=== PATIENT | female | born 1955 | race African-American/Black ===

== ENCOUNTER 2020-05-03 12:47 | Emergency (ER) | payer MEDICAID, OTHER ==
[~2020-05-03] VITALS: Ht 157.5 cm; Wt 70.0 kg
[~2020-05-03 12:47] MED LIST: AMLO2.5T45 MT; BACL-141 PO; DULO30CA2 PO; GABA-290 PO; GLIP1TAB4 MT; HYDR-4001 MT; KEPP500 PO; SIMV5TAB58 MT
[2020-05-03 14:20] LABS: BASOPHILS % 0.9 % (0.0-2.0); EOSINOPHILS % 0.3 % (0.0-5.0); HEMATOCRIT. 39.7 % (36.0-48.0); HEMOGLOBIN. 12.9 g/dL (12.0-16.0); LYMPHOCYTES % 18.4 % (20.0-50.0); MEAN CORPUSCULAR HEMOGLOBIN 26.2 pg (28.0-32.0); MEAN CORPUSCULAR VOLUME 80.8 fL (81.0-99.0); MEAN PLATELET VOLUME 9.7 fl (7.4-10.4); MONOCYTES % 10.7 % (2.0-8.0); NEUTROPHILS % 69.7 % (40.0-76.0); PLATELET 340 x1000/uL (130-400); RED BLOOD CELL COUNT 4.91 mill/uL (4.2-5.4); RED CELL DISTRIBUTION WIDTH 16.2 % (11.6-14.6)
[2020-05-03 14:25] LABS: CHLORIDE 108 mEq/L (98-107)
[2020-05-03] MEDS ORDERED: POTASSIUM CHLORIDE 20MEQ TABLET SR PO ONE (15:00)
[2020-05-03] MEDS ORDERED: FUROSEMIDE 20MG/2ML VIAL IVP ONE (15:00)
[2020-05-03] MEDS ORDERED: RIVAROXABAN 10 MG TABLET PO STA (15:02)
[2020-05-03] MEDS ORDERED: RIVAROXABAN 20 MG TABLET PO SCH (15:30)
[2020-05-03 18:07] VITALS: BP 149/88
== END 2020-05-03 18:00 | disposition home or self-care (01) ==
LOC: ER 12:47
DX: I48.91 Unspecified atrial fibrillation (principal); I13.0 Hypertensive heart and chronic kidney disease with heart failure and stage 1 through stage 4 chronic kidney disease, or unspecified chronic kidney disease; I50.41 Acute combined systolic (congestive) and diastolic (congestive) heart failure; E11.22 Type 2 diabetes mellitus with diabetic chronic kidney disease; N18.9 Chronic kidney disease, unspecified; E11.649 Type 2 diabetes mellitus with hypoglycemia without coma; Z79.4 Long term (current) use of insulin
CPT/HCPCS: 36415; 71045; 80048; 80053; 82962; 83880; 84484; 85025; 93005; 93970; 96374; 99285; J1940

== ENCOUNTER 2020-05-18 14:19 | Inpatient (IN) | payer MEDICAID, OTHER ==
[~2020-05-18] VITALS: Ht 157.5 cm; Wt 68.0 kg
[2020-05-18] MEDS ORDERED: ONDANSETRON HCL 4MG/2ML INJ IV STA (14:39)
[2020-05-18] MEDS ORDERED: DILTIAZEM HCL 5MG/ML 5ML VIAL IV ONE (14:45)
[2020-05-18] MEDS ORDERED: SODIUM CHLORIDE 0.9% 250 ML IV ONE (14:45)
[2020-05-18 15:34] LABS: CHLORIDE 103 mEq/L (98-107)
[2020-05-18 15:37] LABS: BASOPHILS % 0.1 % (0.0-2.0); HEMOGLOBIN. 12.4 g/dL (12.0-16.0); LYMPHOCYTES % 9.3 % (20.0-50.0); MEAN CORPUSCULAR HEMOGLOBIN 25.1 pg (28.0-32.0); MEAN CORPUSCULAR VOLUME 80.7 fL (81.0-99.0); MEAN PLATELET VOLUME 10.1 fl (7.4-10.4); MONOCYTES % 9.4 % (2.0-8.0); NEUTROPHILS % 81.2 % (40.0-76.0); PLATELET 426 x1000/uL (130-400); RED BLOOD CELL COUNT 4.96 mill/uL (4.2-5.4); RED CELL DISTRIBUTION WIDTH 17.3 % (11.6-14.6)
[2020-05-18 15:48] LABS: INR 2.2; PARTIAL THROMBOPLASTIN TIME 32.3 sec (23.4-31.0); PROTHROMBIN TIME 22.6 sec (9.6-11.0)
[2020-05-18] MEDS ORDERED: CLOPIDOGREL 75MG TABLET PO ONE (16:45)
[2020-05-18] MEDS ORDERED: SODIUM CHLORIDE 0.9% 500 ML IV ONE (16:45)
[2020-05-18] MEDS ORDERED: CEFTRIAXONE 1 G PREMIX 50 ML IV ONE (17:30)
[2020-05-18 18:54] LABS: CLARITY URINE CLOUDY (CLEAR); COLOR URINE DARK YELLOW (YELLOW); KETONES URINE TRACE (NEGATIVE); LEUKOCYTE ESTERASE URINE 1+ (NEGATIVE); NITRITE URINE NEGATIVE (NEGATIVE); OCCULT BLOOD URINE NEGATIVE (NEGATIVE); PROTEIN URINE 2+ (NEGATIVE); SPECIFIC GRAVITY URINE 1.019 (1.005-1.030)
[2020-05-18] MEDS: METOPROLOL TARTRATE 50MG TABLET PO SCH (19:00)
[2020-05-18] MEDS ORDERED: METOPROLOL TARTRATE 50MG TABLET PO SCH (19:00)
[2020-05-18] MEDS ORDERED: ONDANSETRON HCL 4MG/2ML INJ IV PRN (19:15)
[2020-05-18] MEDS ORDERED: DILTIAZEM HCL 5MG/ML 5ML VIAL IV NR (19:15)
[2020-05-18] MEDS ORDERED: PIPERACILLIN/TAZOBACTAM 3.375 G in DEXT 5% WATER 100 ML IV SCH (19:15)
[2020-05-18] MEDS ORDERED: AZITHROMYCIN 500 MG in DEXT 5% WATER 250 ML IV SCH (20:00)
[2020-05-18] MEDS ORDERED: PIPERACILLIN/TAZOBACTAM 2.25 G in DEXTROSE 5% WATER 50 ML IV SCH (20:30)
[2020-05-18] MEDS: SODIUM CHLORIDE 0.9% 1,000 ML IV SCH (22:10)
[2020-05-18] MEDS: INSULIN LISPRO 100 UNITS/ML SUBCUT SCH (23:29)
[2020-05-18] MEDS: BLOOD SUGAR DIAGNOSTIC STRIP TEST SCH (23:30)
[2020-05-19] VITALS (77 sets, daily range): BP systolic 73–166; BP diastolic 50–107
[2020-05-19] MEDS ORDERED: MORPHINE SULFATE 2 MG/ML CPJ (NOT FOR IM USE) IV PRN (02:15)
[2020-05-19] MEDS ORDERED: PROPOFOL 10MG/ML 100ML 100 ML IV PRN (04:45)
[2020-05-19] MEDS ORDERED: PHENYLEPHRINE 50 MG in DEXT 5% WATER 245 ML IV PRN ×2 (05:00→08:00)
[2020-05-19] MEDS: INSULIN LISPRO 100 UNITS/ML SUBCUT SCH ×4 (07:00→22:08)
[2020-05-19] MEDS: DILTIAZEM HCL 60MG TABLET PO SCH ×2 (07:36)
[2020-05-19] MEDS: PIPERACILLIN/TAZOBACTAM 2.25 G in DEXTROSE 5% WATER 50 ML IV SCH ×3 (08:07→23:01)
[2020-05-19] MEDS: SODIUM CHLORIDE 0.9% 1,000 ML IV SCH ×2 (08:35→16:39)
[2020-05-19 08:42] LABS: BG CARBOXYHEMOGLOBIN 0.1 % (0.5-1.5); BG DEOXYHEMOGLOBIN 0.2 % (0.0-5.0); BG FRACTION INSPIRED OXYGEN 100; BG HCO3 ACT 14.5 mmol/L (22.0-26.0); BG METHEMOGLOBIN 0.2 % (0.0-1.5); BG OXYGEN SATURATION 99.8 % (92.0-98.5); BG OXYHEMOGLOBIN 99.5 % (94.0-97.0); BG PCO2 31.6 mmHg (35.0-45.0); BG PH 7.281 (7.350-7.450); BG PO2 401.7 mmHg (75.0-100.0); BG SAMPLE SITE RIGHT RADIAL; BG TIDAL VOLUME(mL) 500 mL; BG TOTAL HEMOGLOBIN 12.5 g/dL (12.0-18.0); BG VENT MODE VENT - A/C; BG VENT RATE 16 set
[2020-05-19] MEDS: METOPROLOL TARTRATE 50MG TABLET PO SCH (08:43)
[2020-05-19 09:58] LABS: BASOPHILS % 0.4 % (0.0-2.0); HEMATOCRIT. 38.3 % (36.0-48.0); HEMOGLOBIN. 11.9 g/dL (12.0-16.0); LYMPHOCYTES % 8.8 % (20.0-50.0); MEAN CORPUSCULAR HEMOGLOBIN 24.9 pg (28.0-32.0); MEAN CORPUSCULAR VOLUME 80.4 fL (81.0-99.0); MEAN PLATELET VOLUME 9.9 fl (7.4-10.4); MONOCYTES % 8.8 % (2.0-8.0); PLATELET 317 x1000/uL (130-400); RED BLOOD CELL COUNT 4.77 mill/uL (4.2-5.4)
[2020-05-19] MEDS ORDERED: SODIUM BICARBONATE 8.4% 1 MEQ/ML 50ML SYR IV NR ×2 (10:00→11:00)
[2020-05-19 10:07] LABS: INR 2.6; PROTHROMBIN TIME 26.5 sec (9.6-11.0)
[2020-05-19] MEDS ORDERED: INSULIN REGULAR (HUMULIN R) 300UNITS/3ML IV NR (11:00)
[2020-05-19] MEDS ORDERED: DEXTROSE 50% WATER 50ML SYRINGE IV NR (11:00)
[2020-05-19] MEDS: CITRIC ACID/SODIUM CITRATE SOLN 30ML UDC NG SCH ×3 (11:53→16:39)
[2020-05-19] MEDS ORDERED: SODIUM POLYSTYRENE SULFONATE 15 G/60 ML BOT PO NR (12:00)
[2020-05-19] MEDS: BLOOD SUGAR DIAGNOSTIC STRIP TEST SCH ×3 (12:21→21:00)
[2020-05-19] MEDS ORDERED: SODIUM POLYSTYRENE SULFONATE 15 G/60 ML BOT NG NR (13:00)
[2020-05-19] MEDS: PANTOPRAZOLE SODIUM 40 MG/VIAL IV SCH (14:48)
[2020-05-19] MEDS: PROPOFOL 10MG/ML 100ML 100 ML IV PRN (15:59)
[2020-05-19 17:07] LABS: *AMPHETAMINES SCREEN URINE NEGATIVE (NEGATIVE); *BARBITURATES SCREEN URINE NEGATIVE (NEGATIVE); *BENZODIAZEPINES SCREEN URINE NEGATIVE (NEGATIVE); *COCAINE SCREEN URINE NEGATIVE (NEGATIVE); METHADONE URINE SCREEN NEGATIVE (NEGATIVE); OPIATES URINE SCREEN NEGATIVE (NEGATIVE); PHENCYCLIDINE URINE SCREEN NEGATIVE (NEGATIVE)
[2020-05-19 17:09] LABS: CANNABINOID URINE SCREEN NEGATIVE (NEGATIVE)
[2020-05-19] MEDS: PHENYLEPHRINE 100 MG in DEXT 5% WATER 240 ML IV PRN (20:00)
[2020-05-19] MEDS: LEVETIRACETAM 500MG TABLET PO SCH (22:07)
[2020-05-20] VITALS (97 sets, daily range): BP systolic 84–139; BP diastolic 46–89
[2020-05-20] MEDS: PROPOFOL 10MG/ML 100ML 100 ML IV PRN ×3 (00:56→15:53)
[2020-05-20] MEDS: PIPERACILLIN/TAZOBACTAM 2.25 G in DEXTROSE 5% WATER 50 ML IV SCH ×3 (05:49→21:04)
[2020-05-20] MEDS: SODIUM CHLORIDE 0.9% 1,000 ML IV SCH ×2 (05:50→12:05)
[2020-05-20 05:53] LABS: HEMATOCRIT. 36.7 % (36.0-48.0); HEMOGLOBIN. 11.8 g/dL (12.0-16.0); MEAN CORPUSCULAR VOLUME 77.7 fL (81.0-99.0); MEAN PLATELET VOLUME 9.9 fl (7.4-10.4); PLATELET 249 x1000/uL (130-400); RED BLOOD CELL COUNT 4.73 mill/uL (4.2-5.4); RED CELL DISTRIBUTION WIDTH 16.9 % (11.6-14.6)
[2020-05-20 06:01] LABS: PHOSPHORUS 7.5 mg/dL (2.5-4.9)
[2020-05-20] MEDS: INSULIN LISPRO 100 UNITS/ML SUBCUT SCH ×3 (06:48→18:34)
[2020-05-20] MEDS: BLOOD SUGAR DIAGNOSTIC STRIP TEST SCH ×3 (06:49→18:01)
[2020-05-20 07:13] LABS: BG BASE EXCESS -2.5 mmol/L (-2.0-2.0); BG CARBOXYHEMOGLOBIN 0.5 % (0.5-1.5); BG DEOXYHEMOGLOBIN 5.9 % (0.0-5.0); BG FRACTION INSPIRED OXYGEN 40; BG HCO3 ACT 20.3 mmol/L (22.0-26.0); BG METHEMOGLOBIN 0.7 % (0.0-1.5); BG OXYHEMOGLOBIN 92.9 % (94.0-97.0); BG PCO2 29.5 mmHg (35.0-45.0); BG PH 7.456 (7.350-7.450); BG PO2 77.3 mmHg (75.0-100.0); BG SAMPLE SITE RIGHT BRACHIAL; BG TIDAL VOLUME(mL) 500 mL; BG TOTAL HEMOGLOBIN 12.8 g/dL (12.0-18.0); BG VENT MODE VENT - A/C; BG VENT RATE 16 set
[2020-05-20 07:40] LABS: NUCLEATED RED BLOOD CELLS 4 /100 WBC; PLATELET ESTIMATE NORMAL
[2020-05-20] MEDS: PANTOPRAZOLE SODIUM 40 MG/VIAL IV SCH (08:09)
[2020-05-20] MEDS: CITRIC ACID/SODIUM CITRATE SOLN 30ML UDC NG SCH ×3 (08:09→15:56)
[2020-05-20] MEDS: PHENYLEPHRINE 100 MG in DEXT 5% WATER 240 ML IV PRN (08:11)
[2020-05-20] MEDS: LEVETIRACETAM 500MG TABLET PO SCH ×2 (09:57→21:04)
[2020-05-20] MEDS: MIDODRINE HCL 5MG TABLET NG SCH ×3 (09:58→15:56)
[2020-05-20 12:05] LABS: INR 1.7; PROTHROMBIN TIME 17.3 sec (9.6-11.0)
[2020-05-20] MEDS ORDERED: IPRATROPIUM/ALBUTEROL 0.5-3(2.5)MG/3ML NEB HHN PRN (12:15)
[2020-05-20] MEDS: IPRATROPIUM BROMIDE (0.02%) 0.5MG/2.5ML NEB HHN SCH (19:55)
[2020-05-20] MEDS: FENTANYL CITRATE/PF 1,000 MCG in SODIUM CHLORIDE 0.9% 80 ML IV PRN (21:07)
[2020-05-21] VITALS (100 sets, daily range): BP systolic 61–143; BP diastolic 40–112
[2020-05-21] MEDS: BLOOD SUGAR DIAGNOSTIC STRIP TEST SCH ×4 (00:17→18:00)
[2020-05-21] MEDS: INSULIN LISPRO 100 UNITS/ML SUBCUT SCH ×4 (00:24→18:04)
[2020-05-21] MEDS: PROPOFOL 10MG/ML 100ML 100 ML IV PRN (00:45)
[2020-05-21] MEDS: PHENYLEPHRINE 100 MG in DEXT 5% WATER 240 ML IV PRN ×2 (01:11→15:27)
[2020-05-21] MEDS: IPRATROPIUM BROMIDE (0.02%) 0.5MG/2.5ML NEB HHN SCH ×4 (02:00→20:20)
[2020-05-21] MEDS: PIPERACILLIN/TAZOBACTAM 2.25 G in DEXTROSE 5% WATER 50 ML IV SCH ×3 (06:38→21:29)
[2020-05-21 07:16] LABS: BASOPHILS % 0.4 % (0.0-2.0); HEMATOCRIT. 35.2 % (36.0-48.0); HEMOGLOBIN. 11.3 g/dL (12.0-16.0); MEAN CORPUSCULAR HEMOGLOBIN 24.7 pg (28.0-32.0); MEAN CORPUSCULAR VOLUME 76.8 fL (81.0-99.0); MEAN PLATELET VOLUME 10.4 fl (7.4-10.4); MONOCYTES % 6.9 % (2.0-8.0); NEUTROPHILS % 83.7 % (40.0-76.0); PLATELET 200 x1000/uL (130-400); RED BLOOD CELL COUNT 4.58 mill/uL (4.2-5.4); RED CELL DISTRIBUTION WIDTH 17.2 % (11.6-14.6)
[2020-05-21 07:23] LABS: INR 1.4; PARTIAL THROMBOPLASTIN TIME 37.9 sec (23.4-31.0); PROTHROMBIN TIME 14.6 sec (9.6-11.0)
[2020-05-21 07:26] LABS: PHOSPHORUS 7.6 mg/dL (2.5-4.9)
[2020-05-21] MEDS: CITRIC ACID/SODIUM CITRATE SOLN 30ML UDC NG SCH ×3 (08:27→18:04)
[2020-05-21] MEDS: PANTOPRAZOLE SODIUM 40 MG/VIAL IV SCH (08:28)
[2020-05-21] MEDS: MIDODRINE HCL 5MG TABLET NG SCH ×3 (08:28→18:03)
[2020-05-21] MEDS: LEVETIRACETAM 500MG TABLET PO SCH ×2 (08:28→21:29)
[2020-05-21] MEDS ORDERED: ALBUMIN HUMAN 25GM/100ML (25%) IV NR ×2 (09:00→19:30)
[2020-05-21 09:25] LABS: BG BASE EXCESS -3.2 mmol/L (-2.0-2.0); BG CARBOXYHEMOGLOBIN 0.1 % (0.5-1.5); BG DEOXYHEMOGLOBIN 1.4 % (0.0-5.0); BG FRACTION INSPIRED OXYGEN 40; BG HCO3 ACT 18.7 mmol/L (22.0-26.0); BG OXYGEN SATURATION 98.6 % (92.0-98.5); BG OXYHEMOGLOBIN 98.5 % (94.0-97.0); BG PCO2 25.1 mmHg (35.0-45.0); BG PO2 135.7 mmHg (75.0-100.0); BG SAMPLE SITE RIGHT RADIAL; BG TIDAL VOLUME(mL) 500 mL; BG TOTAL HEMOGLOBIN 11.9 g/dL (12.0-18.0); BG VENT MODE VENT - A/C; BG VENT RATE 16 set
[2020-05-21] MEDS ORDERED: AMIODARONE HCL 900 MG in DEXT 5% WATER 482 ML IV SCH (09:30)
[2020-05-21] MEDS ORDERED: EPINEPHRINE 1:1000 1 MG/ML AMP INJ ONE (10:00)
[2020-05-21] MEDS ORDERED: HEPARIN SODIUM 1,000 UNIT/1ML VIAL IV ONE (10:00)
[2020-05-21] MEDS: FENTANYL CITRATE/PF 1,000 MCG in SODIUM CHLORIDE 0.9% 80 ML IV PRN (19:10)
[2020-05-21] MEDS: NOREPINEPHRINE 8 MG in DEXT 5% WATER 242 ML IV PRN (21:01)
[2020-05-21] MEDS ORDERED: DOPAMINE 800MG PREMIX (DOUBLE) 250 ML IV PRN ×2 (22:13→22:30)
[2020-05-21] MEDS ORDERED: DOPAMINE 400MG/250ML PREMIX 250 ML IV STA (22:16)
[2020-05-21] MEDS: EPINEPHRINE 10 MG in SODIUM CHLORIDE 0.9% 240 ML IV PRN (22:58)
[2020-05-22] VITALS (120 sets, daily range): BP systolic 0–188; BP diastolic 21–108
[2020-05-22] MEDS: BLOOD SUGAR DIAGNOSTIC STRIP TEST SCH ×5 (00:21→23:37)
[2020-05-22 00:34] LABS: BG BASE EXCESS -8.8 mmol/L (-2.0-2.0); BG CARBOXYHEMOGLOBIN 0.5 % (0.5-1.5); BG DEOXYHEMOGLOBIN 1.8 % (0.0-5.0); BG FRACTION INSPIRED OXYGEN 100; BG METHEMOGLOBIN 0.5 % (0.0-1.5); BG OXYGEN SATURATION 98.2 % (92.0-98.5); BG OXYHEMOGLOBIN 97.2 % (94.0-97.0); BG PCO2 42.3 mmHg (35.0-45.0); BG PH 7.247 (7.350-7.450); BG PO2 141.4 mmHg (75.0-100.0); BG SAMPLE SITE LEFT RADIAL; BG TIDAL VOLUME(mL) 450 mL; BG VENT MODE VENT - A/C; BG VENT RATE 12 set
[2020-05-22] MEDS: NOREPINEPHRINE 8 MG in DEXT 5% WATER 242 ML IV PRN ×7 (03:31→23:38)
[2020-05-22] MEDS: PHENYLEPHRINE 100 MG in DEXT 5% WATER 240 ML IV PRN ×3 (03:32→21:30)
[2020-05-22 03:39] LABS: HEMATOCRIT. 35.9 % (36.0-48.0); MEAN CORPUSCULAR HEMOGLOBIN 24.4 pg (28.0-32.0); MEAN CORPUSCULAR VOLUME 79.5 fL (81.0-99.0); MEAN PLATELET VOLUME 9.6 fl (7.4-10.4); PLATELET 171 x1000/uL (130-400); RED BLOOD CELL COUNT 4.52 mill/uL (4.2-5.4); RED CELL DISTRIBUTION WIDTH 17.8 % (11.6-14.6)
[2020-05-22 03:44] LABS: CHLORIDE 107 mEq/L (98-107)
[2020-05-22 03:46] LABS: INR 1.9; PROTHROMBIN TIME 19.4 sec (9.6-11.0)
[2020-05-22 03:58] LABS: PHOSPHORUS 8.9 mg/dL (2.5-4.9)
[2020-05-22 04:23] LABS: NUCLEATED RED BLOOD CELLS 2 /100 WBC; PLATELET ESTIMATE NORMAL
[2020-05-22] MEDS: INSULIN LISPRO 100 UNITS/ML SUBCUT SCH ×2 (06:00)
[2020-05-22] MEDS: PIPERACILLIN/TAZOBACTAM 2.25 G in DEXTROSE 5% WATER 50 ML IV SCH ×3 (06:58→21:26)
[2020-05-22] MEDS: DEXTROSE 50% WATER 50ML SYRINGE IV PRN (07:14)
[2020-05-22] MEDS: IPRATROPIUM BROMIDE (0.02%) 0.5MG/2.5ML NEB HHN SCH ×2 (08:10→20:26)
[2020-05-22] MEDS: EPINEPHRINE 10 MG in SODIUM CHLORIDE 0.9% 240 ML IV PRN ×5 (08:12→23:38)
[2020-05-22] MEDS ORDERED: DILTIAZEM HCL 125 MG in DEXT 5% WATER 100 ML IV PRN (08:45)
[2020-05-22] MEDS ORDERED: DIGOXIN 500MCG/2ML AMP IV SCH (08:45)
[2020-05-22] MEDS: LEVETIRACETAM 500MG TABLET PO SCH ×2 (09:12→21:26)
[2020-05-22] MEDS: MIDODRINE HCL 5MG TABLET NG SCH ×3 (09:12→17:00)
[2020-05-22] MEDS: PANTOPRAZOLE SODIUM 40 MG/VIAL IV SCH (09:12)
[2020-05-22] MEDS: CITRIC ACID/SODIUM CITRATE SOLN 30ML UDC NG SCH ×3 (09:12→17:00)
[2020-05-22 09:17] LABS: BG BASE EXCESS -15.5 mmol/L (-2.0-2.0); BG CARBOXYHEMOGLOBIN 0.5 % (0.5-1.5); BG DEOXYHEMOGLOBIN 2.7 % (0.0-5.0); BG FRACTION INSPIRED OXYGEN 100; BG HCO3 ACT 9.8 mmol/L (22.0-26.0); BG METHEMOGLOBIN 0.5 % (0.0-1.5); BG OXYGEN SATURATION 97.3 % (92.0-98.5); BG OXYHEMOGLOBIN 96.3 % (94.0-97.0); BG PCO2 22.6 mmHg (35.0-45.0); BG PH 7.255 (7.350-7.450); BG PO2 110.9 mmHg (75.0-100.0); BG SAMPLE SITE RIGHT RADIAL; BG TIDAL VOLUME(mL) 450 mL; BG TOTAL HEMOGLOBIN 12.3 g/dL (12.0-18.0); BG VENT MODE VENT - A/C; BG VENT RATE 16 set
[2020-05-22] MEDS ORDERED: SODIUM BICARBONATE 8.4% 1 MEQ/ML 50ML SYR IV SCH (10:45)
[2020-05-23] VITALS (99 sets, daily range): BP systolic 66–138; BP diastolic 25–86
[2020-05-23] MEDS: DEXTROSE 50% WATER 50ML SYRINGE IV PRN (00:04)
[2020-05-23] MEDS: IPRATROPIUM BROMIDE (0.02%) 0.5MG/2.5ML NEB HHN SCH ×4 (00:41→20:10)
[2020-05-23] MEDS: NOREPINEPHRINE 8 MG in DEXT 5% WATER 242 ML IV PRN ×6 (00:43→12:47)
[2020-05-23] MEDS: PHENYLEPHRINE 100 MG in DEXT 5% WATER 240 ML IV PRN ×3 (03:19→20:38)
[2020-05-23] MEDS: EPINEPHRINE 10 MG in SODIUM CHLORIDE 0.9% 240 ML IV PRN ×7 (04:26→22:27)
[2020-05-23] MEDS: BLOOD SUGAR DIAGNOSTIC STRIP TEST SCH ×4 (05:34→23:28)
[2020-05-23] MEDS: PIPERACILLIN/TAZOBACTAM 2.25 G in DEXTROSE 5% WATER 50 ML IV SCH (06:10)
[2020-05-23 08:11] LABS: PHOSPHORUS 11.5 mg/dL (2.5-4.9)
[2020-05-23] MEDS: PANTOPRAZOLE SODIUM 40 MG/VIAL IV SCH (08:24)
[2020-05-23] MEDS ORDERED: SODIUM BICARBONATE 8.4% 1 MEQ/ML 50ML SYR IV SCH ×3 (08:45→14:45)
[2020-05-23] MEDS: MIDODRINE HCL 5MG TABLET NG SCH ×3 (08:53→16:08)
[2020-05-23] MEDS: CITRIC ACID/SODIUM CITRATE SOLN 30ML UDC NG SCH ×3 (08:53→16:08)
[2020-05-23] MEDS: LEVETIRACETAM 500MG TABLET PO SCH ×2 (08:54→21:52)
[2020-05-23] MEDS ORDERED: SODIUM POLYSTYRENE SULFONATE 15 G/60 ML BOT NG SCH (09:00)
[2020-05-23 09:40] LABS: HEMATOCRIT. 35.5 % (36.0-48.0); HEMOGLOBIN. 9.8 g/dL (12.0-16.0); MEAN CORPUSCULAR HEMOGLOBIN 24.7 pg (28.0-32.0); MEAN CORPUSCULAR VOLUME 89.3 fL (81.0-99.0); RED BLOOD CELL COUNT 3.98 mill/uL (4.2-5.4); RED CELL DISTRIBUTION WIDTH 19.9 % (11.6-14.6)
[2020-05-23 10:14] LABS: NUCLEATED RED BLOOD CELLS 4 /100 WBC; PLATELET ESTIMATE DECREASED; PROTHROMBIN TIME 44.6 sec (9.6-11.0)
[2020-05-23 10:16] LABS: INR 4.6
[2020-05-23 10:19] LABS: MEAN PLATELET VOLUME 8.9 fl (7.4-10.4); PLATELET 87 x1000/uL (130-400)
[2020-05-23 10:58] LABS: BG BASE EXCESS -22.2 mmol/L (-2.0-2.0); BG CARBOXYHEMOGLOBIN 0.5 % (0.5-1.5); BG DEOXYHEMOGLOBIN 7.1 % (0.0-5.0); BG HCO3 ACT 8.3 mmol/L (22.0-26.0); BG METHEMOGLOBIN 0.6 % (0.0-1.5); BG OXYGEN SATURATION 92.8 % (92.0-98.5); BG OXYHEMOGLOBIN 91.8 % (94.0-97.0); BG PH 6.982 (7.350-7.450); BG PO2 86.2 mmHg (75.0-100.0); BG SAMPLE SITE LEFT FEMORAL; BG TIDAL VOLUME(mL) 450 mL; BG TOTAL HEMOGLOBIN 10.7 g/dL (12.0-18.0); BG VENT MODE VENT - A/C; BG VENT RATE 16 set
[2020-05-23] MEDS ORDERED: CEFEPIME 1,000 MG in DEXTROSE 5% WATER 50 ML IV SCH ×2 (11:15→13:00)
[2020-05-23] MEDS ORDERED: DEXTROSE 50% WATER 50ML SYRINGE IV PRN (11:15)
[2020-05-23] MEDS: INSULIN LISPRO 100 UNITS/ML SUBCUT SCH ×2 (12:11→17:58)
[2020-05-23] MEDS ORDERED: BLOOD SUGAR DIAGNOSTIC STRIP TEST SCH (12:50)
[2020-05-23 14:20] LABS: BG BASE EXCESS -19.5 mmol/L (-2.0-2.0); BG CARBOXYHEMOGLOBIN 0.3 % (0.5-1.5); BG DEOXYHEMOGLOBIN 9.2 % (0.0-5.0); BG FRACTION INSPIRED OXYGEN 100; BG HCO3 ACT 9.6 mmol/L (22.0-26.0); BG METHEMOGLOBIN 0.6 % (0.0-1.5); BG OXYGEN SATURATION 90.7 % (92.0-98.5); BG OXYHEMOGLOBIN 89.9 % (94.0-97.0); BG PCO2 34.2 mmHg (35.0-45.0); BG PH 7.065 (7.350-7.450); BG PO2 74.8 mmHg (75.0-100.0); BG SAMPLE SITE RIGHT RADIAL; BG TIDAL VOLUME(mL) 450 mL; BG TOTAL HEMOGLOBIN 10.8 g/dL (12.0-18.0); BG VENT MODE VENT - A/C; BG VENT RATE 20 set
[2020-05-23] MEDS: NOREPINEPHRINE 32 MG in DEXT 5% WATER 218 ML IV PRN (14:48)
[2020-05-23] MEDS ORDERED: INSULIN GLARGINE UD 100 UNITS/ML SYR SUBCUT SCH (22:00)
[2020-05-24] MEDS: INSULIN LISPRO 100 UNITS/ML SUBCUT SCH
[2020-05-24 00:01] VITALS: BP 59/31
[2020-05-24 00:15] VITALS: BP 99/69
[2020-05-24 00:30] VITALS: BP 92/35
[2020-05-24 00:45] VITALS: BP 74/37
[2020-05-24] MEDS ORDERED: DOPAMINE 800MG PREMIX (DOUBLE) 250 ML IV PRN (00:45)
[2020-05-24 00:54] VITALS: BP 74/37
[2020-05-24] MEDS: IPRATROPIUM BROMIDE (0.02%) 0.5MG/2.5ML NEB HHN SCH (00:54)
[2020-05-24] MEDS: EPINEPHRINE 10 MG in SODIUM CHLORIDE 0.9% 240 ML IV PRN (00:54)
[2020-05-24] MEDS: NOREPINEPHRINE 32 MG in DEXT 5% WATER 218 ML IV PRN (00:55)
[2020-05-24] MEDS ORDERED: SODIUM BICARBONATE 8.4% MEQ/ML 50ML VIAL IV ONE (00:59)
[2020-05-24] MEDS ORDERED: DEXTROSE 50% WATER 50ML VIAL IV ONE (00:59)
[2020-05-24] MEDS ORDERED: CALCIUM CHLORIDE 1GM/10ML SYR IV ONE (00:59)
[2020-05-24] MEDS ORDERED: EPINEPHRINE 0.1MG/ML (1:10,000) 10ML SYR ONE (00:59)
== END 2020-05-24 01:02 | disposition expired | DRG 720 ==
LOC: ER 14:19 → 7WST 17:20 → EDBEDREQSVC 17:54 → EDBEDREQ 19:00 → EDBEDREQSVC 19:00 → EDBEDREQTM 19:01 → EDBEDREQSVC 19:45 → EDBEDREQTM 19:45 → ENRESERV 20:32 → MICUSO 05-19 06:40 → CVICU 05-19 20:20
PROVIDERS: ADMIT Internal Medicine; ATTEND Internal Medicine
PROC: 0BH17EZ Insertion of Endotracheal Airway into Trachea, Via Natural or Artificial Opening (ICD-10-PCS; principal; 2020-05-19)
PROC: 5A1945Z Respiratory Ventilation, 24-96 Consecutive Hours (ICD-10-PCS; 2020-05-19)
PROC: 06HY33Z Insertion of Infusion Device into Lower Vein, Percutaneous Approach (ICD-10-PCS; 2020-05-19)
PROC: B54BZZA Ultrasonography of Right Lower Extremity Veins, Guidance (ICD-10-PCS; 2020-05-19)
PROC: 02HV33Z Insertion of Infusion Device into Superior Vena Cava, Percutaneous Approach (ICD-10-PCS; 2020-05-21)
PROC: B548ZZA Ultrasonography of Superior Vena Cava, Guidance (ICD-10-PCS; 2020-05-21)
PROC: 5A1D70Z Performance of Urinary Filtration, Intermittent, Less than 6 Hours Per Day (ICD-10-PCS; 2020-05-21)
PROC: 5A12012 Performance of Cardiac Output, Single, Manual (ICD-10-PCS; 2020-05-22)
PROC: 5A1D70Z Performance of Urinary Filtration, Intermittent, Less than 6 Hours Per Day (ICD-10-PCS; 2020-05-22)
DX: A41.9 Sepsis, unspecified organism (principal); J96.01 Acute respiratory failure with hypoxia; E11.22 Type 2 diabetes mellitus with diabetic chronic kidney disease; E43 Unspecified severe protein-calorie malnutrition; E78.5 Hyperlipidemia, unspecified; E87.2 Acidosis; E87.5 Hyperkalemia; G40.909 Epilepsy, unspecified, not intractable, without status epilepticus; I13.0 Hypertensive heart and chronic kidney disease with heart failure and stage 1 through stage 4 chronic kidney disease, or unspecified chronic kidney disease; I50.9 Heart failure, unspecified; J18.9 Pneumonia, unspecified organism; N17.0 Acute kidney failure with tubular necrosis; N18.3 Chronic kidney disease, stage 3 (moderate); R65.21 Severe sepsis with septic shock; I46.9 Cardiac arrest, cause unspecified; I48.92 Unspecified atrial flutter; I48.0 Paroxysmal atrial fibrillation; D72.810 Lymphocytopenia; D68.9 Coagulation defect, unspecified; J94.8 Other specified pleural conditions; I42.9 Cardiomyopathy, unspecified; J93.9 Pneumothorax, unspecified; Z88.6 Allergy status to analgesic agent; Z79.899 Other long term (current) drug therapy; Z68.27 Body mass index [BMI] 27.0-27.9, adult; Z82.49 Family history of ischemic heart disease and other diseases of the circulatory system; Z83.3 Family history of diabetes mellitus
CPT/HCPCS: 36415; 36600; 71045; 74176; 76937; 80048; 80053; 80076; 80305; 81003; 82270; 82375; 82805; 82962; 83036; 83605; 83735; 83880; 84100; 84145; 84478; 84484; 85025; 87070; 87635; 92950; 93005; 93306; 94002; 94003; 94640; 94660; 99291; C1752; C1887; C9113; J0282; J0456; J0692; J0696; J1160; J1265; J1644; J1815; J2270; J2370; J2405; J2543; J2704; J3010; J3490; J7040; J7050; J7060; P9047